=== PATIENT | female | born 1965 | race African-American/Black ===

== ENCOUNTER 2018-06-14 11:47 | Emergency (ER) | payer OTHER ==
[~2018-06-14] VITALS: Ht 160 cm; Wt 72.6 kg
--- OUTSIDE RECORDS SUMMARY | 2018-06-14 11:49 | XMS REPORT | Continuity of Care Document ---
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 Chemistry SGOT (AST) 17 U/L 0 - 37 02/14/2013 Medical [facility] Chemistry ALK PHOS 60 U/L 39 - 136 02/14/2013 Medical [facility] Chemistry TSH 1.420 uIU/mL 0.360 - 3.740 02/14/2013 Medical [facility] Hematology HGB 14.7 g/dL 12.0 - 16.0 02/14/2013 Medical [facility] Hematology HCT 46.2 % 36.0 - 48.0 02/14/2013 Medical [facility] Hematology PLATELETS 217 K/CMM /mm3 133 - 450 02/14/2013 [facility] Serology RPR Non Reactive 02/14/2013 [facility] Serology RPR Non Reactive 02/14/2013 Medical [facility] Serology RPR Non Reactive 02/14/2013 [facility] Urinalysis UA COLOR Light Yellow 02/14/2013 [facility] Urinalysis UA COLOR Light Yellow 02/14/2013 [facility] Vital Signs Vital Sign Value Date Comments Source Systolic (mm Hg) 109 08/08/2015 [facility] Diastolic (mm Hg) 70 08/08/2015 [facility] Respitory Rate 18 08/08/2015 [facility] Temperature Oral (F) 98.1 F 08/08/2015 [facility] Heart Rate 68 08/08/2015 [facility] Temperature Oral (F) 98.2 F 08/08/2015 [facility] Heart Rate 69 08/08/2015 [facility] Respitory Rate 18 08/08/2015 [facility] Systolic (mm Hg) 118 08/08/2015 [facility] Diastolic (mm Hg) 80 08/08/2015 [facility] Heart Rate 60 08/08/2015 [facility] Temperature Oral (F) 98.1 F 08/08/2015 [facility] Systolic (mm Hg) 122 08/08/2015 [facility] Diastolic (mm Hg) 80 08/08/2015 [facility] Respitory Rate 19 08/08/2015 [facility] Height 162.56 cm 08/07/2015 [facility] BMI Calculated 27.01 08/07/2015 [facility] Weight 71.364 08/07/2015 [facility] Height 64 03/09/2014 [facility] Weight 163 03/09/2014 [facility] Temperature Oral (F) 96.9 F 03/09/2014 [facility] Heart Rate 61 03/09/2014 [facility] Systolic (mm Hg) 125 03/09/2014 [facility] Diastolic (mm Hg) 79 03/09/2014 [facility] Weight 165 02/02/2014 [facility] Systolic (mm Hg) 141 02/02/2014 [facility] Diastolic (mm Hg) 91 02/02/2014 [facility] Heart Rate 77 02/02/2014 [facility] Weight 167 11/10/2013 [facility] Temperature Oral (F) 98.2 F 11/10/2013 [facility] Heart Rate 64 11/10/2013 [facility] Systolic (mm Hg) 173 11/10/2013 [facility] Diastolic (mm Hg) 98 11/10/2013 [facility] Weight 161 05/29/2013 [facility] Temperature Oral (F) 96.8 F 05/29/2013 [facility] Heart Rate 69 05/29/2013 [facility] Systolic (mm Hg) 146 05/29/2013 [facility] Diastolic (mm Hg) 91 05/29/2013 [facility] Weight 168 03/11/2013 [facility] Heart Rate 67 03/11/2013 [facility] Systolic (mm Hg) 135 03/11/2013 [facility] Diastolic (mm Hg) 86 03/11/2013 [facility] Temperature Oral (F) 97.5 F 03/11/2013 [facility] Height 64 02/14/2013 [facility] Temperature Oral (F) 97.9 F 02/14/2013 [facility] Systolic (mm Hg) 178 02/14/2013 [facility] Diastolic (mm Hg) 102 02/14/2013 [facility] Heart Rate 68 02/14/2013 [facility] Weight 165 02/14/2013 [facility] Encounters Location Location Details Encounter Type Encounter Number Reason For Visit Attending Provider ADM Date DC Date Status Source [facility] Lab Report [id number] Penelope Powell MD 05/29/2013 05/29/2013 Medical [facility] Office Visit [id number] Penelope Powell MD 11/10/2013 11/10/2013 Medical [facility] Office Visit [id number] Penelope Powell MD 02/02/2014 02/02/2014 Medical [facility] Office Visit [id number] Penelope Powell MD 03/09/2014 03/09/2014 Medical [facility] Lab Report [id number] Penelope Powell MD 07/01/2014 07/01/2014 Medical Group [facility] [place] [facility] [id number] mariano Powell 10/07/2014 10/08/2014 [facility] [place] [facility] [id number] PENELOPE POWELL 11/04/2014 Active [facility] Inpatient [id number] Navneet Dumont 08/07/2015 08/08/2015 [facility] Outpatient [id number] PENELOPE POWELL 08/10/2015 Active [facility] Procedures Procedure Code Date Perfomer Comments Source colonoscopy 11465 12/15/2013 Complete [facility] mammogram 34973 03/12/2013 Completed [facility] vaginal Pap smear results 34944 02/14/2013 Normal [facility] Partial hysterectomy<sup>1</sup> [id number] 2006 [facility] [place] Partial hysterectomy<sup>1</sup> [id number] [place]
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
--- OUTSIDE RECORDS SUMMARY | 2018-06-14 11:50 | XMS REPORT | Summary of Care ---
Author Author [facility] Organization [facility] Address Unknown Phone Unavailable Encounter CRISTIANA Ordonez(DEREK) [id number] Date(s): 08/07/15 - 08/08/15 [facility] [address] [place] [address]- Discharge Disposition: Home Attending Physician: Navneet Dumont DO Admitting Physician: Navneet Dumont DO Referring Physician: Navneet Dumont DO Vital Signs 1 2 3 Most recent to oldest [Reference Range]: 162.56 cm (08/07/15 1:24 AM) Height 98.1 DegF (08/08/15 12:18 PM) 98.2 DegF (08/08/15 8:15 AM) 98.1 DegF (08/08/15 3:12 AM) Temperature Oral [96.4-99.1 DegF] 109/70 mmHg (08/08/15 12:18 PM) 118/80 mmHg (08/08/15 8:15 AM) 122/80 mmHg (08/08/15 3:12 AM) Blood Pressure [90-140/60-90 mmHg] 18 BRMIN (08/08/15 12:18 PM) 18 BRMIN (08/08/15 8:15 AM) 19 BRMIN (08/08/15 3:12 AM) Respiratory Rate [14-20 BRMIN] 68 bpm (08/08/15 12:18 PM) 69 bpm (08/08/15 8:15 AM) 60 bpm (08/08/15 3:12 AM) Peripheral Pulse Rate [60-100 bpm] 71.364 kg (08/07/15 1:24 AM) Weight 27.01 m2 (08/07/15 1:24 AM) Body Mass Index Problem List Condition Effective Dates Status Health Status Informant Acute sinusitis1 02/02/14 Resolved Atypical chest pain2 03/09/14 Active Breast lump3, 4 05/28/14 Active Constipation5 03/11/13 Active Excessive sweating6 02/02/14 Active Fatigue7 02/14/13 Active History of - Resolved hysterectomy(Confirm ed)8 Hyperlipidemia9 02/02/14 Active Vitamin D 02/02/14 Active nmnnqhunch28 1Data migrated from [employer] on 08/28/14. 2Data migrated from [employer] on 07/14/14. 3Data migrated from [employer] on 08/19/14. 4Data migrated from [employer] on 07/14/14. 5Data migrated from [employer] on 07/14/14. 6Data migrated from [employer] on 07/14/14. 7Data migrated from [employer] on 07/14/14. 8partial hysterectomy 2006 9Data migrated from [employer] on 07/14/14. 10Data migrated from [employer] on 07/14/14. Allergies, Adverse Reactions, Alerts Substance Reaction Severity Status Latex1 Active 1Data migrated from [employer] on 04/14/15. Originally documented as LATEX. Medications amLODIPine 5 mg, 1 tab, Route: PO, Drug form: TAB, Daily, Dosing Weight 71.364, kg, Start d ate: 08/08/15 9:00:00 CDT, Duration: 30 day, Stop date: 09/06/15 9:00:00 CDT Notes: (Same as: Albertvasc) Start Date: 08/08/15 Stop Date: 08/08/15 Status: Discontinued calcium gluconate + sodium chloride 0.9% INJ 100 mL 2 gm, 20 mL, Route: IVPB, PRN, Dosing Weight 71.364, kg, PRN Abnormal Lab Result , For NON-ICU Patients Only., Start date: 08/07/15 1:51:00 CDT, Duration: 30 day , Stop date: 09/06/15 1:50:00 CDT Notes: WASTE: F/P - Sink; E - Municipal Trash Bin Start Date: 08/07/15 Stop Date: 08/08/15 Status: Discontinued calcium gluconate + sodium chloride 0.9% INJ 150 mL 3 gm, 30 mL, Route: IVPB, Drug form: INJ, PRN, Dosing Weight 71.364, kg, PRN Abn ormal Lab Result, For NON-ICU Patients Only., Start date: 08/07/15 1:51:00 CDT, Duration: 30 day, Stop date: 09/06/15 1:50:00 CDT Notes: WASTE: F/P - Sink; E - Municipal Trash Bin Start Date: 08/07/15 Stop Date: 08/08/15 Status: Discontinued D5W 1/2NS 1,000 mL 1,000 mL, Rate: 125 ml/hr, Infuse over: 8 hr, Route: IV, Dosing Weight 71.364 kg , Total Volume: 1,000, Start date: 08/07/15 16:50:00 CDT, Duration: 30 day, Stop date: 09/06/15 16:49:00 CDT Start Date: 08/07/15 Stop Date: 08/08/15 Status: Discontinued hydrochlorothiazide 25 mg oral tablet 25 mg, 1 tab, Route: PO, Drug form: TAB, Daily, Start date: 08/08/15 9:00:00 CDT , Duration: 30 day, Stop date: 09/06/15 9:00:00 CDT Notes: (Same as: Hydrodiuril) With food. Start Date: 08/08/15 Stop Date: 08/08/15 Status: Discontinued hydrochlorothiazide-lisinopril 25 mg-20 mg oral tablet 1 tab, Route: PO, Drug Form: TAB, Dosing Weight 71.364, kg, Daily, Start date: 0 08/08/15 9:00:00 CDT, Duration: 30 day, Stop date: 09/06/15 9:00:00 CDT Start Date: 08/08/15 Stop Date: 08/07/15 Status: Deleted hydromorphone 0.2 mg, 0.2 mL, Route: IV, Drug form: INJ, Q4H, Dosing Weight 71.364, kg, PRN Pa in Score 1-5, Start date: 08/07/15 1:57:00 CDT, Duration: 30 day, Stop date: 1:56:00 CDT Start Date: 08/07/15 Stop Date: 08/08/15 Status: Discontinued lactulose 20 gm, 30 mL, Route: PO, Drug Form: SYRP, Dosing Weight 71.364, kg, ONCE, Start date: 08/08/15 8:52:00 CDT, Stop date: 08/08/15 8:52:00 CDT Notes: (Same as:Chronulac) Start Date: 08/08/15 Stop Date: 08/08/15 Status: Completed lisinopril PO, Daily, 0 Refill(s) Start Date: 08/07/15 Stop Date: 08/07/15 Status: Deleted magnesium oxide 800 mg, 2 tab, Route: PO, Drug form: TAB, PRN, Dosing Weight 71.364, kg, PRN Abn ormal Lab Result, For NON-ICU Patients Only., Start date: 08/07/15 1:51:00 CDT, Duration: 30 day, Stop date: 09/06/15 1:50:00 CDT Notes: (Same as: Mag-Ox 400)Magnesium oxide [id number] elemental magnesiumDose= ____mg magnesium oxide (___mg elemental magnesium) Start Date: 08/07/15 Stop Date: 08/08/15 Status: Discontinued magnesium sulfate 2 gm, 50 mL, Route: IVPB, Drug form: INJ, PRN, Dosing Weight 71.364, kg, PRN Abn ormal Lab Result, For NON-ICU Patients Only., Start date: 08/07/15 1:51:00 CDT, Duration: 30 day, Stop date: 09/06/15 1:50:00 CDT Notes: WASTE: F/P - Sink; E - Municipal Trash Bin Start Date: 08/07/15 Stop Date: 08/08/15 Status: Discontinued magnesium sulfate 1 gm, 100 mL, Route: IVPB, Drug form: INJ, PRN, Dosing Weight 71.364, kg, PRN Ab normal Lab Result, For NON-ICU Patients Only., Start date: 08/07/15 1:51:00 CDT, Duration: 30 day, Stop date: 09/06/15 1:50:00 CDT Notes: WASTE: F/P - Sink; E - Municipal Trash Bin Start Date: 08/07/15 Stop Date: 08/08/15 Status: Discontinued MiraLax 17 gm, 1 pkt, Route: PO, Drug form: PWDR, ONCE, Dosing Weight 71.364, kg, Start date: 08/07/15 15:04:00 CDT, Duration: 1 doses or times, Stop date: 08/07/15 15: 04:00 CDT Notes: Dissolve in 8 oz of water or juice.(Same as: Miralax) Start Date: 08/07/15 Stop Date: 08/07/15 Status: Completed ondansetron 4 mg, 2 mL, Route: IVP, Drug form: INJ, ONCE, Dosing Weight 71.364, kg, PRN Naus ea & Vomiting, Start date: 08/07/15 1:37:00 CDT Notes: (Same as: Zofran) MEDICATION WASTE Product Size: 4 mgProduct Was mary: ___ mg Start Date: 08/07/15 Stop Date: 08/07/15 Status: Discontinued Pepcid 20 mg, 2 mL, Route: IVP, Drug form: INJ, Q12H, Dosing Weight 71.364, kg, Start d ate: 08/07/15 9:00:00 CDT, Duration: 30 day, Stop date: 09/05/15 21:00:00 CDT Notes: (Same as: Pepcid)Can be dilute in 5-10cc NS IVP: Slow IV push over at le ast 2 minutes. Start Date: 08/07/15 Stop Date: 08/08/15 Status: Discontinued Pepcid 20 mg, Route: IVP, Q12H, Dosing Weight 71.364, kg, Start date: 08/07/15 21:00:00 CDT, Duration: 30 day, Stop date: 09/06/15 9:00:00 CDT Start Date: 08/07/15 Stop Date: 08/07/15 Status: Deleted potassium chloride 20 mEq, 1 tab, Route: PO, Drug form: ERTAB, PRN, Dosing Weight 71.364, kg, PRN A bnormal Lab Result, For NON-ICU Patients Only, Start date: 08/07/15 1:51:00 CDT, Duration: 30 day, Stop date: 09/06/15 1:50:00 CDT Notes: (Same as: K-Dur 20)"Do Not Crush" With food and full glass of water Start Date: 08/07/15 Stop Date: 08/08/15 Status: Discontinued potassium chloride 10 mEq, 100 mL, Route: IVPB, Drug form: INJ, PRN, Dosing Weight 71.364, kg, PRN Abnormal Lab Result, For NON-ICU Patients Only, Start date: 08/07/15 1:51:00 CDT , Duration: 30 day, Stop date: 09/06/15 1:50:00 CDT Notes: Infuse at a rate of 10 mEq/hr.(Same as: KCL) Start Date: 08/07/15 Stop Date: 08/08/15 Status: Discontinued potassium chloride 20 mEq, 15 mL, Route: NJ, Drug form: LIQ, PRN, Dosing Weight 71.364, kg, PRN Abn ormal Lab Result, For NON-ICU Patients Only, Start date: 08/07/15 1:51:00 CDT, D uration: 30 day, Stop date: 09/06/15 1:50:00 CDT Notes: (Same as: Potassium Chloride) Start Date: 08/07/15 Stop Date: 08/08/15 Status: Discontinued potassium chloride 40 mEq, 30 mL, Route: PO, Drug form: LIQ, ONCE, Dosing Weight 71.364, kg, Start date: 08/08/15 7:10:00 CDT, Stop date: 08/08/15 7:10:00 CDT Notes: (Same as: Potassium Chloride) Start Date: 08/08/15 Stop Date: 08/08/15 Status: Completed potassium chloride 40 mEq, 2 tab, Route: PO, Drug form: ERTAB, ONCE, Dosing Weight 71.364, kg, Star t date: 08/08/15 8:53:00 CDT, Stop date: 08/08/15 8:53:00 CDT Notes: (Same as: K-Dur 20)"Do Not Crush" With food and full glass of water Start Date: 08/08/15 Stop Date: 08/08/15 Status: Completed potassium phosphate + sodium chloride 0.9% INJ 250 mL 15 mmol, 5 mL, Route: IVPB, PRN, Dosing Weight 71.364, kg, PRN Abnormal Lab Resu lt, For NON-ICU Patients Only., Start date: 08/07/15 1:51:00 CDT, Duration: 30 d ay, Stop date: 09/06/15 1:50:00 CDT Notes: (Same as: K Phosphate.) 1 mMol phoshate has 1.47 mEq potassium Infuse o mallory 4 hours Start Date: 08/07/15 Stop Date: 08/08/15 Status: Discontinued potassium phosphate + sodium chloride 0.9% INJ 250 mL 30 mmol, 10 mL, Route: IVPB, PRN, Dosing Weight 71.364, kg, PRN Abnormal Lab Res ult, For NON-ICU Patients Only., Start date: 08/07/15 1:51:00 CDT, Duration: 30 day, Stop date: 09/06/15 1:50:00 CDT Notes: (Same as: K Phosphate.) 1 mMol phoshate has 1.47 mEq potassium Infuse o mallory 4 hours Start Date: 08/07/15 Stop Date: 08/08/15 Status: Discontinued potassium phosphate-sodium phosphate 250 mg-278 mg-164 mg oral powder 2 pkt, Route: PO, Drug Form: PDR/REC, Dosing Weight 71.364, kg, PRN, PRN Abnorma l Lab Result, For NON-ICU Patients Only, Start date: 08/07/15 1:51:00 CDT, Durat ion: 30 day, Stop date: 09/06/15 1:50:00 CDT Notes: Same as: Phos-NakMix 1 packet with 75 mL water or juice. Each packet has 160mg of sodium, 280mg of potassium, and 250mg of phosphorusNon-Formulary Item Start Date: 08/07/15 Stop Date: 08/08/15 Status: Discontinued Prinivil 20 mg, 1 tab, Route: PO, Drug form: TAB, Daily, Start date: 08/08/15 9:00:00 CDT , Duration: 30 day, Stop date: 09/06/15 9:00:00 CDT Notes: (Same as: Prinivil, Zestril) Start Date: 08/08/15 Stop Date: 08/08/15 Status: Discontinued Saline Flush 0.9% 10 ml, Route: IVP, Drug Form: INJ, Dosing Weight 71.364, kg, Q12H, Start date: 0 08/07/15 9:00:00 CDT, Duration: 30 day, Stop date: 09/05/15 21:00:00 CDT Notes: (Same as: BD Posiflush) Start Date: 08/07/15 Stop Date: 08/08/15 Status: Discontinued Saline Flush 0.9% 10 ml, Route: IVP, Drug Form: INJ, Dosing Weight 71.364, kg, PRN, PRN Line Flush , Start date: 08/07/15 1:37:00 CDT, Duration: 30 day, Stop date: 09/06/15 1:36:0 0 CDT Notes: (Same as: BD Posiflush) Start Date: 08/07/15 Stop Date: 08/08/15 Status: Discontinued sodium chloride 0.9% 1000 ml INJ 1,000 mL 1,000 mL, Rate: 125 ml/hr, Infuse over: 8 hr, Route: IV, Dosing Weight 71.364 kg , Total Volume: 1,000, Start date: 08/07/15 1:37:00 CDT, Duration: 30 day, Stop date: 09/06/15 1:36:00 CDT Start Date: 08/07/15 Stop Date: 08/07/15 Status: Discontinued sodium phosphate + D5W 250 mL 15 mmol, 5 mL, Route: IVPB, PRN, Dosing Weight 71.364, kg, PRN Abnormal Lab Resu lt, For NON-ICU Patients Only., Start date: 08/07/15 1:51:00 CDT, Duration: 30 d ay, Stop date: 09/06/15 1:50:00 CDT Start Date: 08/07/15 Stop Date: 08/08/15 Status: Discontinued sodium phosphate + D5W 250 mL 30 mmol, 10 mL, Route: IVPB, PRN, Dosing Weight 71.364, kg, PRN Abnormal Lab Res ult, For NON-ICU Patients Only., Start date: 08/07/15 1:51:00 CDT, Duration: 30 day, Stop date: 09/06/15 1:50:00 CDT Start Date: 08/07/15 Stop Date: 08/08/15 Status: Discontinued tramadol 50 mg, 1 tab, Route: PO, Drug form: TAB, Q6H, Dosing Weight 71.364, kg, PRN Pain Score 4-6, Start date: 08/07/15 15:05:00 CDT, Duration: 30 day, Stop date: 07/2 5/16 15:04:00 CDT Notes: Not to exceed 400mg/day. (Same As: Ultram) Start Date: 08/07/15 Stop Date: 08/08/15 Status: Discontinued Tylenol 650 mg, 2 tab, Route: PO, Drug form: TAB, Q6H, Dosing Weight 71.364, kg, PRN Skyla n 1-3/Temp > 100.4 F, Start date: 08/07/15 15:05:00 CDT, Duration: 30 day, Stop date: 09/06/15 15:04:00 CDT Notes: Do not exceed 4 gm/day. (Same as: Tylenol) Start Date: 08/07/15 Stop Date: 08/08/15 Status: Discontinued Zofran 4 mg, 2 mL, Route: IV, Drug form: INJ, Q6H, Dosing Weight 71.364, kg, PRN Nausea , Start date: 08/07/15 15:05:00 CDT, Duration: 30 day, Stop date: 09/06/15 15:04 :00 CDT Notes: (Same as: Zofran) MEDICATION WASTE Product Size: 4 mgProduct Was mary: ___ mg Start Date: 08/07/15 Stop Date: 08/08/15 Status: Discontinued Results ELECTROLYTES Most recent to 1 2 oldest [Reference Range]: Sodium Lvl [135-145 140 mEq/L 138 mEq/L mEq/L] (08/08/15 2:11 AM) (08/07/15 4:41 AM) Potassium Lvl 3.0 mEq/L 1 3.4 mEq/L [3.5-5.1 mEq/L] *CRIT* *LOW* (08/08/15 2:11 AM) (08/07/15 4:41 AM) Chloride Lvl [95-109 106 mEq/L 107 mEq/L mEq/L] (08/08/15 2:11 AM) (08/07/15 4:41 AM) CO2 [24-32 mEq/L] 25 mEq/L 24 mEq/L (08/08/15 2:11 AM) (08/07/15 4:41 AM) AGAP [10.0-20.0 12.0 mEq/L 10.4 mEq/L mEq/L] (08/08/15 2:11 AM) (08/07/15 4:41 AM) 1Result Comment: Critical Result(s) called to nemesio christopher at 08/08/2015 02:41 by elvis. Read back OK. CHEM PANEL Most recent to 1 2 oldest [Reference Range]: Creatinine Lvl 0.74 mg/dL 0.70 mg/dL [0.50-1.40 mg/dL] (08/08/15 2:11 AM) (08/07/15 4:41 AM) eGFR 110 mL/min/1.73m2 1 118 mL/min/1.73m2 2 *NA* *NA* (08/08/15 2:11 AM) (08/07/15 4:41 AM) BUN [7-22 mg/dL] 6 mg/dL 9 mg/dL *LOW* (08/07/15 4:41 AM) (08/08/15 2:11 AM) B/C Ratio [6-25] 8 13 (08/08/15 2:11 AM) (08/07/15 4:41 AM) Glucose Lvl [70-99 108 mg/dL 85 mg/dL mg/dL] *HI* (08/07/15 4:41 AM) (08/08/15 2:11 AM) Total Protein 6.5 g/dL 6.4 g/dL [6.4-8.4 g/dL] (08/08/15 2:11 AM) (08/07/15 4:41 AM) Albumin Lvl [3.5-5.0 3.0 g/dL 3.1 g/dL g/dL] *LOW* *LOW* (08/08/15 2:11 AM) (08/07/15 4:41 AM) Globulin [2.0-4.0 3.5 g/dL 3.3 g/dL g/dL] (08/08/15 2:11 AM) (08/07/15 4:41 AM) A/G Ratio [0.7-1.6] 0.9 0.9 (08/08/15 2:11 AM) (08/07/15 4:41 AM) Calcium Lvl 7.5 mg/dL 7.7 mg/dL [8.5-10.5 mg/dL] *LOW* *LOW* (08/08/15 2:11 AM) (08/07/15 4:41 AM) Phosphorus [2.5-4.5 2.9 mg/dL mg/dL] (08/07/15 4:41 AM) Magnesium Lvl 1.9 mg/dL [1.8-2.4 mg/dL] (08/07/15 4:41 AM) ALT [0-65 unit/L] 78 unit/L 67 unit/L *HI* *HI* (08/08/15 2:11 AM) (08/07/15 4:41 AM) AST [0-37 unit/L] 58 unit/L 66 unit/L *HI* *HI* (08/08/15 2:11 AM) (08/07/15 4:41 AM) Alk Phos [39-136 52 unit/L 47 unit/L unit/L] (08/08/15 2:11 AM) (08/07/15 4:41 AM) Bili Total [0.2-1.3 1.0 mg/dL 0.9 mg/dL mg/dL] (08/08/15 2:11 AM) (08/07/15 4:41 AM) Lipase Lvl [73-393 55 unit/L 111 unit/L unit/L] *LOW* (08/07/15 4:41 AM) (08/08/15 2:11 AM) 1Result Comment: The eGFR is calculated using the [...] from the National Kid[employer] Disease Education Program ( NKDEP) which additionally recommends that when the eGFR is used in patients with extremes of body mass index for purposes of drug dosing, the eGFR should be mul tiplied by the estimated BMI. 2Result Comment: The eGFR is calculated using the [...] from the National Kid[employer] Disease Education Program ( NKDEP) which additionally recommends that when the eGFR is used in patients with extremes of body mass index for purposes of drug dosing, the eGFR should be mul tiplied by the estimated BMI. LIPIDS Most recent to 1 2 oldest [Reference Range]: CHD Risk [3.90-5.80] 2.34 *LOW* (08/07/15 4:41 AM) Chol [<=199 mg/dL] 164 mg/dL (08/07/15 4:41 AM) Trig [<=149 mg/dL] 52 mg/dL (08/07/15 4:41 AM) HDL [>=61 mg/dL] 70 mg/dL (08/07/15 4:41 AM) LDL (Calculated) 84 mg/dL [<=99 mg/dL] (08/07/15 4:41 AM) VLDL 10 *NA* (08/07/15 4:41 AM) HEMATOLOGY Most recent to 1 2 oldest [Reference Range]: WBC [3.7-10.4 K/CMM] 4.8 K/CMM (08/08/15 2:11 AM) RBC [4.20-5.40 3.80 M/CMM M/CMM] *LOW* (08/08/15 2:11 AM) Hgb [12.0-16.0 g/dL] 11.2 g/dL *LOW* (08/08/15 2:11 AM) Hct [36.0-48.0 %] 34.2 % *LOW* (08/08/15 2:11 AM) MCV [80.0-98.0 fL] 89.9 fL (08/08/15 2:11 AM) MCH [27.0-31.0 pg] 29.4 pg (08/08/15 2:11 AM) MCHC [32.0-36.0 32.6 g/dL g/dL] (08/08/15 2:11 AM) RDW [11.5-14.5 %] 13.7 % (08/08/15 2:11 AM) Platelet [133-450 191 K/CMM K/CMM] (08/08/15 2:11 AM) MPV [7.4-10.4 fL] 8.4 fL (08/08/15 2:11 AM) Segs [45.0-75.0 %] 51.8 % (08/08/15 2:11 AM) Lymphocytes 34.7 % [20.0-40.0 %] (08/08/15 2:11 AM) Monocytes [2.0-12.0 11.5 % %] (08/08/15 2:11 AM) Eosinophils [0.0-4.0 1.6 % %] (08/08/15 2:11 AM) Basophils [0.0-1.0 0.4 % %] (08/08/15 2:11 AM) Segs-Bands # 2.5 K/CMM [1.5-8.1 K/CMM] (08/08/15 2:11 AM) Lymphocytes # 1.7 K/CMM [1.0-5.5 K/CMM] (08/08/15 2:11 AM) Monocytes # [0.0-0.8 0.6 K/CMM K/CMM] (08/08/15 2:11 AM) Eosinophils # 0.1 K/CMM [0.0-0.5 K/CMM] (08/08/15 2:11 AM) PT [12.0-14.7 14.3 seconds seconds] (08/07/15 4:41 AM) INR [0.85-1.17] 1.08 (08/07/15 4:41 AM) PTT [22.9-35.8 29.6 seconds seconds] (08/07/15 4:41 AM) Immunizations No data available for this section Procedures Procedure Date Related Diagnosis Body Site Partial hysterectomy1 90843 Social History Social History Type Response Alcohol Never Smoking Status Never smoker; Exposure to Tobacco Smoke None; Cigarette Smoking Last 365 Days No; Reg Smoking Cessation Counseling No Assessment and Plan Extracted from: Title: Clinical Document Author: Navneet Dumont DO Date: 08/08/15 Progress Daily [facility] Completed: Jul, 15:10 by Navneet Dumont DO RM: 149 - 2W, SE [id number] (: 1965) F Attending: Navneet Dumont DOPhone: Service: Internal Medicine Reason for Admission: PANCREATITIS . Working DRG: None Documented Code status: Full Code [Ordered]Current diet: Isolation: No Isolation/Standard Precautions [Ordered] Allergies: Latex SUBJECTIVE Patient seen and examined. Events noted overnight. Labs/Images reviewed doing ok, improved OBJECTIVE Labs (Last four charted values) WBC 4.8(AUG 07) Hgb L 11.2(AUG 07) Hct L 34.2(AUG 07) Plt 191(AUG 07) Na 140(AUG 07)138(AUG 06) K C 3.0(AUG 07)L 3.4(AUG 06) CO2 25(AUG 07)24(AUG 06) Cl 106(AUG 07)107(AUG 06) Cr 0.74(AUG 07)0.70(AUG 06) BUN L 6(AUG 07)9(AUG 06) Glucose Random H 108(AUG 07)85(AUG 06) Mg 1.9(AUG 06) Phos 2.9(AUG 06) Ca L 7.5(AUG 07)L 7.7(AUG 06) PT 14.3(AUG 06) INR 1.08(AUG 06) PTT 29.6(AUG 06) ASSESSMENT & EXAM Gen: NAD, Alert, Awake HEENT: NC/AT, PERRLA, oral area clear and moist Neck: No LAD, No JVD, trachea midline Chest: CTAB, no c/w/r CV: RRR, S1, S2 GI: +BS, S, NT, ND, No organomegaly Ext: no c/c/e Neuro: AOx3, no gross deficits noted Skin: No notable rashes PLAN & TREATMENT toleratign diet had BM with lactulose ok tod chome noted some hyppoglycemia - but stable DIAGNOSES & PROBLEMS 1. Acute pancreatitis. 2. Acute gastritis. 3. Hypokalemia. 4. Hypertension. Ready for Discharge (Yes/No)? Srivastava still necessary (Yes/No): Line still necessary (Yes/No): 24hr Labs 08/07 1132 Glucose POC57 L 08/07 0648 Glucose TSZ246 H 08/07 0211 Lipase Lvl55 L Sodium Cvx969 Potassium Lvl3.0 C Chloride Cgi849 CO225 AGAP12.0 Glucose Qoi475 H Creatinine Lvl0.74 BUN6 L B/C Ratio8 Total Protein6.5 Albumin Lvl3.0 L Globulin3.5 A/G Ratio0.9 Calcium Lvl7.5 L ALT78 H AST58 H Alk Phos52 Bili Total1.0 xDSQ014 WBC4.8 RBC3.80 L Hgb11.2 L Hct34.2 L MCV89.9 MCH29.4 MCHC32.6 RDW13.7 Tokmfypg208 MPV8.4 Segs51.8 Eajannvqy15.5 Ntdzjodumxg71.7 Eosinophils1.6 Basophils0.4 Segs-Bands #2.5 Lymphocytes #1.7 Monocytes #0.6 Eosinophils #0.1 08/06 2359 Glucose POC81 08/06 1556 Glucose POC55 L VitalsTmp(F)CxejoGKHHNnI5VDM4 08/07 12:[id number]--- 08/07 08:1598.073129/[id number]--- 08/07 03:1298.634148/577227--- 08/06 23:[id number]--- 08/06 19:[id number]--- 24 Hr Tmax: 98.2F (36.78c) at 08/07 08:15Vital Signs are the last 5 in the past 48 hours. DateWt(kg)Wt(lb)Ht(cm)Ht(in)Method 08/06 (initial) 71.36 157.00Measured .56 64.00Stated I&ORecordInOutBal 07/2623hr Tot 464 0 464 07/2523hr Tot 344 0 344 Medications (15) Active Scheduled Meds (5): 08/08/15 amLODIPine 5 mg PO Daily 08/07/15 famotidine (Pepcid) 20 mg IVP Q12H 08/08/15 hydrochlorothiazide (hydrochlorothiazide 25 mg oral tablet) 25 mg PO Daily 08/08/15 lisinopril (Prinivil) 20 mg PO Daily 08/07/15 sodium chloride (Saline Flush 0.9%) 10 ml IVP Q12H Unscheduled Meds: None PRN Meds (5): 08/07/15 acetaminophen (Tylenol) 650 mg PO Q6H 08/07/15 hydromorphone 0.2 mg IV Q4H 08/07/15 ondansetron (Zofran) 4 mg IV Q6H 08/07/15 sodium chloride (Saline Flush 0.9%) 10 ml IVP PRN 08/07/15 tramadol 50 mg PO Q6H One Time Meds (4): 08/08/15 (Completed) lactulose 20 gm PO ONCE 08/07/15 (Completed) polyethylene glycol 3350 (MiraLax) 17 gm PO ONCE 08/08/15 (not done) potassium chloride 40 mEq PO ONCE 08/08/15 (Completed) potassium chloride 40 mEq PO ONCE Continuous Infusions (1): 08/07/15 D5W 1/2NS 1,000 mL 1,000 mL 125 ml/hr
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
--- OUTSIDE RECORDS SUMMARY | 2018-06-14 11:50 | XMS REPORT | Summary of Care ---
Author Author [facility] Outpatient [facility] [place] Address Unknown Phone Unavailable Encounter CRISTIANA Ordonez(DEREK) [id number] Date(s): 10/07/14 - 10/07/14 [facility] [address] [id number]- [phone] Discharge Disposition: Home Attending Physician: Penelope Powell MD Vital Signs No data available for this section Problem List Condition Effective Dates Status Health Status Informant Acute sinusitis1 02/02/14 Resolved Atypical chest pain2 03/09/14 Active Breast lump3, 4 05/28/14 Active Constipation5 03/11/13 Active Excessive sweating6 02/02/14 Active Fatigue7 02/14/13 Active History of - Resolved hysterectomy(Confirm ed)8 Hyperlipidemia9 02/02/14 Active Vitamin D 02/02/14 Active [id number] 1Data migrated from [employer] on 08/28/14. [...] Adverse Reactions, Alerts Substance Reaction Severity Status Latex Active Medications No data available for this section Results No data available for this section Immunizations No data available for this section Procedures Procedure Date Related Diagnosis Body Site Partial hysterectomy1 57797 Social History Social History Type Response Smoking Status Never smoker; Exposure to Tobacco Smoke None; Cigarette Smoking Last 365 Days No; Reg Smoking Cessation Counseling No Assessment and Plan No data available for this section
--- NOTE | 2018-06-14 13:41 | Diagnostic Imaging Report ---
History: Right leg weakness Comparison studies: None Technique: Axial images were obtained from the skull base to the vertex. Coronal and sagittal reconstructions obtained from the axial data. Dose modulation, iterative reconstruction, and/or weight based adjustment of the mA/kV was utilized to reduce the radiation dose to as low as reasonably achievable. Findings: Scalp/skull: No abnormalities. No fractures, blastic or lytic lesions. Extra-axial spaces: No masses. No fluid collections. Brain sulci: Appropriate for age. Ventricles: Normal in size and configuration. No hydrocephalus. Parenchyma: No abnormal densities. No masses, hemorrhage, acute or chronic cortical vascular insults. Sellar/suprasellar region: No abnormalities Craniocervical junction: Patent foramen magnum. No Chiari one malformation. Mild atherosclerotic calcification at the right carotid siphon IMPRESSION: No acute abnormalities . Signed by: DR Brice Robbins M.D. on 06/14/2018 1:37 PM
[2018-06-14 14:54] VITALS: BP 166/88
== END 2018-06-14 14:57 | disposition home or self-care (01) ==
LOC: FSED 11:47
DX: R20.2 Paresthesia of skin (principal); M54.16 Radiculopathy, lumbar region
CPT/HCPCS: 70450; 99283